=== PATIENT | female | born 1980 | race Caucasian/White ===

== ENCOUNTER 2021-06-09 19:52 | Emergency (ER) | payer OTHER ==
[2021-06-09] MEDS ORDERED: Sodium Chloride 0.9% 10 ML Syringe FLUSH PRN (20:26)
== END 2021-06-09 21:38 | disposition home or self-care (01) ==
LOC: JD.ED 19:52
DX: R07.89 Other chest pain (principal); Z88.0 Allergy status to penicillin; Z91.048 Other nonmedicinal substance allergy status; Z79.82 Long term (current) use of aspirin; Z79.899 Other long term (current) drug therapy
CPT/HCPCS: 36415; 71045; 80053; 83735; 84484; 85025; 85379; 93005; 99285; J3490; 93010; 99284